=== PATIENT | female | born 1995 | race Caucasian/White ===

== ENCOUNTER 2018-07-01 18:44 | Emergency (ER) | payer BC ==
[2018-07-01] MEDS ORDERED: diphenhydrAMINE 50 MG/ML VIAL ONE (22:00)
[2018-07-01] MEDS ORDERED: Famotidine/PF 20 mg/2ml Vial ONE (22:00)
== END 2018-07-01 22:06 | disposition home or self-care (01) ==
LOC: ERS 18:44
DX: T78.40XA Allergy, unspecified, initial encounter (principal)
CPT/HCPCS: 96374; 96375; J1200; S0028